=== PATIENT | male | born 1990 | race Caucasian/White ===

== ENCOUNTER 2024-07-06 15:58 | Emergency (ER) | payer SELFPAY ==
[2024-07-06] VITALS (16 sets, daily range): BP systolic 116–146; BP diastolic 74–97
[~2024-07-06] VITALS: Ht 190.5 cm; Wt 117.0 kg
[2024-07-06] MEDS ORDERED: ASPIRIN 81 MG/TAB PO ONE (16:35)
[2024-07-06 16:49] LABS: BASO% 0.3 % (0-3); EOS% 0.5 % (0-8); HEMATOCRIT 47.2 % (39.0-50.0); IMMATURE GRANULOCYTES 0.1 % (0.0-5.0); LYMPH% 13.4 % (15-41); MEAN CELL VOLUME 89.9 fL CALC (80.0-100.0); MEAN CORPUSCULAR HGB 30.5 pG CALC (26.0-32.0); MEAN CORPUSCULAR HGB CONC 33.9 g/dL CAL (32.0-36.0); NEUT# 8.82 thou/uL (1.82-7.42); NEUT% 80.7 % (42-76); RED BLOOD COUNT 5.25 mill/uL (4.70-6.10); RED CELL DISTRI WIDTH 11.8 % (11.5-15.5)
[2024-07-06 17:00] LABS: ALKALINE PHOSPHATASE 107 u/l (38-126); ANION GAP 15 (6-22 (CALC)); BILIRUBIN, TOTAL 1.9 mg/dL (0.2-1.3); BUN 9 mg/dL (9-20); BUN/CREATININE RATIO 11 (12-20 (CALC)); CARBON DIOXIDE 25 mmol/l (22-30); CHLORIDE 102 mmol/l (95-108); CREATININE 0.9 mg/dL (0.7-1.3); ESTIMATED GFR 114 ML/MIN (>=90 (CALC)); POTASSIUM 4.2 mmol/l (3.5-5.1); SGOT/AST 33 u/l (17-59); SODIUM 139 mmol/l (137-146); TOTAL PROTEIN 8.6 g/dL (6.3-8.2)
== END 2024-07-06 20:20 | disposition home or self-care (01) | DRG 313 ==
LOC: ED 15:58
PROVIDERS: Family Medicine
DX: R07.9 Chest pain, unspecified (principal); Z84.89 Family history of other specified conditions